=== PATIENT | female | born 1985 | race African-American/Black ===

== ENCOUNTER 2019-04-20 20:43 | Emergency (ER) | payer MEDICAID ==
[~2019-04-20] VITALS: Ht 165.1 cm; Wt 71.2 kg
[2019-04-20] MEDS ORDERED: VESICARE 5 MG TA5 MG PO (20:55)
[2019-04-20] MEDS ORDERED: BETASERON0.3 MG SUBQ (20:59)
[2019-04-20 21:53] LABS: URINE BILIRUBIN NEGATIVE (Negative); URINE BLOOD NEGATIVE (Negative); URINE CLARITY CLEAR; URINE COLOR YELLOW; URINE GLUCOSE-RANDOM NEGATIVE (Negative); URINE KETONES TRACE (Negative); URINE LEUKOCYTES-REFLEX 1+ (Negative); URINE NITRITE-REFLEX NEGATIVE (Negative); URINE PROTEIN TRACE (Negative); URINE SPECIFIC GRAVITY >= 1.030 (1.005-1.030)
[2019-04-20 21:57] LABS: AMP/METHAMP Negative (Negative); BARBITURATES Negative (Negative); BENZODIAZEPINES Negative (Negative); COCAINE Negative (Negative); METHADONE Negative (Negative); OPIATES Negative (Negative); PCP Negative (Negative); THC Negative (Negative)
[2019-04-20 22:54] LABS: SQUAMOUS >10 Many /LPF (0-3)
[2019-04-20 22:55] LABS: BACTERIA-REFLEX >30 Many /HPF (None Seen); CASTS None Seen /LPF (None Seen); MUCUS 4-6 Moderate strn/LPF (None Seen); URINE RBC None Seen /HPF (0-2); URINE WBC-REFLEX >25 Many /HPF (0-5)
[2019-04-20 22:56] LABS: CRYSTALS None Seen /LPF (None Seen)
[2019-04-20] MEDS ORDERED: HYDROCORTISONE30 G9 RECTAL (23:08)
[2019-04-20] MEDS ORDERED: BACTRIM DS TAB1 EACH PO (23:08)
[2019-04-20 23:23] VITALS: BP 138/88
== END 2019-04-20 23:26 | disposition home or self-care (01) ==
LOC: M.ERS 20:43
PROVIDERS: Emergency Medicine
DX: N39.0 Urinary tract infection, site not specified (principal); K62.89 Other specified diseases of anus and rectum; F17.200 Nicotine dependence, unspecified, uncomplicated; I10 Essential (primary) hypertension; J45.909 Unspecified asthma, uncomplicated; Z91.048 Other nonmedicinal substance allergy status